=== PATIENT | male | born 1990 | race African-American/Black ===

== ENCOUNTER 2025-05-31 18:55 | Emergency (ER) | payer OTHER ==
[~2025-05-31] VITALS: Ht 177.8 cm; Wt 118.0 kg
[2025-05-31 18:59] VITALS: TEMP 36.9; O2SAT 97
[2025-05-31 20:19] LABS: BASOPHILS % 0.9 % (0.0-2.0); EOSINOPHILS % 4.4 % (0.0-5.0); HEMATOCRIT. 43.9 % (42.0-52.0); HEMOGLOBIN. 15.0 g/dL (14.0-18.0); LYMPHOCYTES % 31.9 % (20.0-50.0); MEAN PLATELET VOLUME 9.6 fl (7.4-10.4); MONOCYTES % 7.6 % (2.0-8.0); NEUTROPHILS % 55.2 % (40.0-76.0); PLATELET 193 x1000/uL (130-400); RED BLOOD CELL COUNT 5.04 mill/uL (4.7-6.1); RED CELL DISTRIBUTION WIDTH 13.3 % (11.6-14.6)
[2025-05-31 20:34] LABS: CREATININE 1.3 mg/dL (0.6-1.3); UREA NITROGEN BLOOD 10 mg/dL (9-23)
[2025-05-31 20:36] LABS: TROPONIN I HIGH SENSITIVITY 9 ng/L (3.0-53)
[2025-05-31 22:13] LABS: TROPONIN I HIGH SENSITIVITY 8 ng/L (3.0-53)
[2025-05-31] MEDS: POTASSIUM CHLORIDE 20MEQ/PACKET PO ONE (22:33)
[2025-05-31 22:42] VITALS: BP 135/93; PULSE 67; RESP 16; O2SAT 98
== END 2025-05-31 22:44 | disposition home or self-care (01) ==
LOC: ER 18:55
DX: R07.89 Other chest pain (principal); I10 Essential (primary) hypertension; Z98.890 Other specified postprocedural states
CPT/HCPCS: 36415; 71045; 80048; 84484; 85025; 93005; 99291